=== PATIENT | male | born 1995 | race African-American/Black ===

== ENCOUNTER → 2020-03-18 | Outpatient (CLI) | payer OTHER ==
--- NOTE | 2020-03-18 13:18 | 2DMMODE ---
[place] [address] 2 D/M-MODE ECHOCARDIOGRAM Name: CATHRYN THOMAS Room: [facility]#: [id number] Admission: 03/18/20 Attend Phys: Jasvir Guerra MD Discharge: Date of : 89 Date of Service: 03/18/20 1317 Report #: [id number] THIS REPORT FOR: cc: FAM - No family physician/PCP FAM - No family physician/PCP Jasvir Guerra MD [facility] ~ APPROVED REPORT Study performed: 03/18/2020 09:20:56 EXAM: Comprehensive 2D, Doppler, and color-flow Echocardiogram Patient Location: Out-Patient BSA: 2.17 HR: 72 bpm BP: 130/70 mmHg Other Information Study Quality: Good Indications Murmur 2D Dimensions IVSd: 10.31 (7-11mm) LVOT Diam: 20.80 (18-24mm) LVDd: 45.30 mm PWd: 10.05 (7-11mm) Ascending Ao: 25.95 (22-36mm) LVDs: 27.52 (25-40mm) Aortic Root: 27.79 mm Volumes Left Atrial Volume (Systole) LA ESV Index: 17.50 mL/m2 Aortic Valve AoV Peak Octavio.: 1.30 m/s AO Peak Gr.: 6.78 mmHg LVOT Max P.31 mmHg AO Mean Gr.: 3.63 mmHg LVOT Mean P.07 mmHg LVOT Max V: 1.04 m/s AO V2 VTI: 25.48 cm LVOT Mean V: 0.66 m/s LINDSAY (VTI): 2.43 cm2 LVOT V1 VTI: 18.23 cm Mitral Valve E/A Ratio: 1.73 [place] [address] 2 D/M-MODE ECHOCARDIOGRAM Name: CATHRYN THOMAS Room: [facility]#: [id number] Admission: 03/18/20 Attend Phys: Jasvir Guerra MD Discharge: Date of : 89 Date of Service: 03/18/20 1317 Report #: [id number] MV Decel. Time: 190.62 ms MV E Max Octavio.: 0.76 m/s MV PHT: 55.28 ms MVA (PHT): 3.98 cm2 TDI E/Lateral E': 4.22 E/Medial E': 6.91 Medial E' Octavio.: 0.11 m/s Lateral E' Octavio.: 0.18 m/s Pulmonary Valve PV Peak Octavio.: 1.16 m/s PV Peak Gr.: 5.34 mmHg Tricuspid Valve RAP Estimate: 5.00 mmHg TR Peak Gr.: 15.30 mmHg RVSP: 20.30 mmHg PA Pressure: 20.30 mmHg Left Ventricle The left ventricle is normal size. There is normal LV segmental wall motion. There is normal left ventricular wall thickness. Left ventricular systolic function is normal. The left ventricular ejection fraction is within the normal range. LVEF is 55-60%. The left ventricular diastolic function is normal. Right Ventricle The right ventricle is normal size. The right ventricular systolic function is normal. Atria The left atrium size is normal. The right atrium size is normal. Aortic Valve The aortic valve is normal in structure. No aortic regurgitation is present. There is no aortic valvular stenosis. Mitral Valve The mitral valve is normal in structure. Trace mitral regurgitation. No evidence of mitral valve stenosis. Tricuspid Valve The tricuspid valve is normal in structure. Trace to mild tricuspid regurgitation. [place] [address] 2 D/M-MODE ECHOCARDIOGRAM Name: CATHRYN THOMAS Room: [facility]#: [id number] Admission: 03/18/20 Attend Phys: Jasvir Guerra MD Discharge: Date of : 89 Date of Service: 03/18/20 1317 Report #: [id number] The pulmonary valve is normal in structure. Trace pulmonic regurgitation. Great Vessels The aortic root is normal in size. IVC is normal in size and collapses >50% with inspiration. Pericardium There is no pericardial effusion. <Conclusion> Left ventricular systolic function is normal. The left ventricular ejection fraction is within the normal range. <ELECTRONICALLY SIGNED> By: Jasvir Guerra MD, FACC 03/18/201316 16 16 Jasvir Guerra MD, FACC /INF
== END ==
LOC: M.CRD 09:00
PROVIDERS: ATTEND Internal Medicine Cardiovascular Disease
DX: I07.1 Rheumatic tricuspid insufficiency (principal); R01.1 Cardiac murmur, unspecified